=== PATIENT | male | born 1950 | race Caucasian/White ===

== ENCOUNTER → 2018-08-28 | Outpatient (CLI) | payer MEDICARE, OTHER ==
--- NOTE | 2018-08-28 15:08 | Diagnostic Imaging Report ---
EXAMINATION: Left shoulder at 11:33 a.m. INDICATION: Chronic left shoulder pain. FINDINGS: Three views were obtained. There are no prior studies available for comparison. There is no fracture, dislocation, or acute bony abnormality evident. There is at least moderate degenerative disease of the glenohumeral joint and mild degenerative disease of the acromioclavicular joint. The soft tissues are unremarkable. IMPRESSION: 1. There is no evidence for an acute bony abnormality. 2. If there is clinical concern regarding an injury to the labrum or rotator cuff, then MRI will be recommended for further study. Dictated by: Dictated on workstation # [id number]
== END ==
LOC: RAD 11:18
DX: G89.29 Other chronic pain (principal); M25.512 Pain in left shoulder
CPT/HCPCS: 73030

== ENCOUNTER → 2018-10-04 | Outpatient (CLI) | payer MEDICARE, OTHER ==
--- NOTE | 2018-10-04 16:20 | Diagnostic Imaging Report ---
PROCEDURE: MRI left upper extremity without contrast. TECHNIQUE: Multiplanar, multisequence non contrast-enhanced MRI of the left upper extremity was accomplished. INDICATION: Left shoulder pain after lifting weights. COMPARISON: Radiographs from 08/28/2018. FINDINGS: No acute fracture or dislocation is seen in the left shoulder. There are advanced degenerative changes in the glenohumeral joint, with osteophytes and subcortical cyst-like changes. Marked cartilage loss is seen in the posterior glenoid. There is posterior subluxation of the humeral head. No significant joint effusion is seen. There is mild tendinosis of the supraspinatus and infraspinatus tendons. A tiny intrasubstance low-grade partial-thickness tear is seen at the footplate of the supraspinatus tendon (image 11, series 5). The subscapularis tendon demonstrates tendinosis and low-grade partial-thickness tearing at the articular surface. The teres minor and infraspinatus tendons are intact. There is no muscular atrophy of the rotator cuff. The long head of the biceps tendon demonstrates intra-articular tendinosis with no tear seen. The tendon is located within the bicipital groove. There is degenerative tearing of the glenoid labrum, which appears nearly completely absent posteriorly. No significant paralabral cyst is seen. The acromion has a curved undersurface with no hooking. There are [id number] degenerative changes in the acromioclavicular joint. The coracoclavicular and coracoacromial ligaments are intact. The coracohumeral ligament appears to be intact, although there is soft tissue edema at the rotator cuff interval. The inferior glenohumeral ligament does not appear particularly thickened. The soft tissues about the left shoulder are otherwise unremarkable. IMPRESSION: 1. Mild tendinosis with low-grade partial-thickness tearing in the supraspinatus and subscapularis tendons. No muscular atrophy is seen. 2. Intra-articular tendinosis of the biceps tendon with no tear seen. 3. Advanced degenerative changes in the glenohumeral joint with posterior subluxation of the humeral head. There is degeneration of the glenoid labrum. 4. Soft tissue edema in the rotator cuff interval. This is likely reactive rather than due to adhesive capsulitis. There is no thickening of the inferior glenohumeral ligament. Dictated by: Dictated on workstation # [id number]
== END ==
LOC: RAD 15:16
DX: S46.012A Strain of muscle(s) and tendon(s) of the rotator cuff of left shoulder, initial encounter (principal); S43.022A Posterior subluxation of left humerus, initial encounter; M19.012 Primary osteoarthritis, left shoulder; M94.8X1 Other specified disorders of cartilage, shoulder; X50.0XXA Overexertion from strenuous movement or load, initial encounter
CPT/HCPCS: 73221

== ENCOUNTER → 2022-12-19 | Outpatient (CLI) | payer MEDICARE, OTHER ==
--- NOTE | 2022-12-19 17:05 | Diagnostic Imaging Report ---
EXAMINATION: Right ribs two views. HISTORY: Rib injury. COMPARISON: None available. FINDINGS: No rib fracture is seen. No pleural effusion or pneumothorax. IMPRESSION: 1. No right-sided rib fracture seen. Dictated by: Dictated on workstation # [id number]
--- NOTE | 2022-12-19 18:09 | Diagnostic Imaging Report ---
INDICATION: Back pain AP and lateral views of the thoracic spine obtained. Thoracic vertebrae are normal in height and alignment. There is no fracture or compression deformity. There are small osteophytes throughout the mid to lower thoracic levels. There is disc space narrowing throughout the mid to lower thoracic spine. IMPRESSION: Diffuse degenerative changes throughout the thoracic spine with no acute abnormality. Dictated by: Dictated on workstation # [id number]
== END ==
LOC: RAD 14:32
PROVIDERS: ATTEND Internal Medicine
DX: M47.814 Spondylosis without myelopathy or radiculopathy, thoracic region (principal); S29.9XXA Unspecified injury of thorax, initial encounter; M99.02 Segmental and somatic dysfunction of thoracic region
CPT/HCPCS: 71100; 72072

== ENCOUNTER 2023-01-24 10:46 | Outpatient (RCR) | payer MEDICARE, OTHER | END 2023-01-26 | disposition home or self-care (01) | PROVIDERS: ATTEND Internal Medicine | DX: M99.02 Segmental and somatic dysfunction of thoracic region (principal) ==

== ENCOUNTER 2023-02-02 11:11 | Outpatient (RCR) | payer MEDICARE, OTHER | END 2023-02-26 | disposition home or self-care (01) | PROVIDERS: ATTEND Internal Medicine | DX: M99.02 Segmental and somatic dysfunction of thoracic region (principal); I10 Essential (primary) hypertension ==